=== PATIENT | female | born 1975 | race Caucasian/White ===

== ENCOUNTER → 2019-09-07 | Outpatient (CLI) | payer BC | END | disposition home or self-care (01) | LOC: LAB SHORT 10:58 → PLD 10:58 | DX: L57.0 Actinic keratosis (principal); L11.9 Acantholytic disorder, unspecified | CPT/HCPCS: 88305 ==

== ENCOUNTER → 2022-02-21 | Outpatient (CLI) | payer BC | END | disposition home or self-care (01) | LOC: LAB SHORT 12:58 | DX: R10.9 Unspecified abdominal pain (principal) | CPT/HCPCS: 87086; 87147 ==

== ENCOUNTER 2023-04-24 13:57 | Emergency (ER) | payer BC ==
[~2023-04-24] VITALS: Ht 160 cm; Wt 63.5 kg
[2023-04-24 15:50] LABS: BASOPHILS ABSOLUTE AUTO 0.05 K/mm3 (0.00-0.23); BASOPHILS PERCENT AUTO 1 % (0-2); EOSINOPHILS ABSOLUTE AUTO 0.12 K/mm3 (0.00-0.68); EOSINOPHILS PERCENT AUTO 2 % (0-6); Hemoglobin 13.9 g/dL (11.5-16.0); IMMATURE GRAN ABSOLUTE AUTO 0.03 K/mm3 (0.00-0.10); IMMATURE GRAN PERCENT AUTO 0 % (0-1); LYMPHOCYTES ABSOLUTE AUTO 2.46 K/mm3 (0.84-5.20); LYMPHOCYTES PERCENT AUTO 32 % (21-46); MONOCYTES ABSOLUTE AUTO 0.57 K/mm3 (0.16-1.47); MONOCYTES PERCENT AUTO 8 % (4-13); Mean Corpuscular HGB Conc 33.9 g/dL (31.5-36.5); Mean Corpuscular Volume 95 fL (80-100); Mean Platelet Volume 10.9 fL (9.1-12.4); NEUTROPHILS ABSOLUTE AUTO 4.41 K/mm3 (1.96-9.15); NEUTROPHILS PERCENT AUTO 58 % (41-73); Platelet Count 232 K/mm3 (150-400); RDW Coefficient Variation 12.7 % (11.7-14.2); RDW Standard Deviation 43.8 fL (35.1-46.3); Red Blood Cell Count 4.34 M/mm3 (3.80-5.20); White Blood Cell Count 7.64 K/mm3 (4.00-11.30)
[2023-04-24 16:16] LABS: Albumin, Blood 4.2 g/dL (3.4-5.0); Albumin/Globulin Ratio 1.4 (0.8-1.8); Bilirubin, Total 0.2 mg/dL (0.1-1.0); Bun/Creatinine Ratio 9.1 (12.0-20.0); Calcium, Blood 9.3 mg/dL (8.5-10.1); Creatinine, Blood 0.99 mg/dL (0.40-1.00); Globulin, Blood 3.1 g/dL (2.2-4.0); Potassium, Blood 3.9 mmol/L (3.5-5.5); Total Protein, Blood 7.3 g/dL (6.4-8.2)
[2023-04-24 16:35] LABS: Source, Urine Clean Catch
[2023-04-24 16:41] LABS: Appearance, Urine Hazy (Clear); Bilirubin, Urine Neg (Neg); Blood, Urine 2+ (Neg); Color, Urine Yellow (P-Yellow); Glucose Qualitative, Urine Neg (Neg); Ketones, Urine 1+ (Neg); Leukocyte Esterase, Urine 2+ (Neg); Nitrite, Urine Neg (Neg); Protein, Urine 1+ (Neg); Urobilinogen, Urine NORM (Normal)
[2023-04-24 16:51] LABS: Bacteria Mod /hpf; Squamous Epithelial Cells Mod /hpf (Few); Transitional Epithelial Cells Few /hpf (0-Rare); White Blood Cells, Urine 25-50 /hpf (0-5)
[2023-04-24] MEDS ORDERED: TAMSULOSIN HCL0.4 M1 PO (17:03)
[2023-04-24] MEDS ORDERED: METHYLPHENIDATE18 MG PO (17:04)
[2023-04-24] MEDS ORDERED: RIZATRIPTAN10 M3 PO (17:04)
[2023-04-24] MEDS ORDERED: EMGALITY120 MG/1 M SQ (17:04)
[2023-04-24] MEDS ORDERED: ZOLPIDEM TARTRA10 MG PO (17:04)
[2023-04-24] MEDS ORDERED: PROLIA60 MG/1 ML SQ (17:04)
[2023-04-24] MEDS ORDERED: PROGESTERONE100 M1 PO (17:05)
[2023-04-24] MEDS ORDERED: LOSA50 PO (17:05)
[2023-04-24] MEDS ORDERED: Venlafaxine HCl75 M1 PO (17:05)
[2023-04-24] MEDS ORDERED: ESTRADIOL1 M1 PO (17:05)
[2023-04-24] MEDS ORDERED: TIZANIDINE HCL213 PO (17:06)
[2023-04-24] MEDS ORDERED: CEFP200 PO (18:41)
[2023-04-24 19:00] VITALS: BP 141/89
== END 2023-04-24 19:05 | disposition home or self-care (01) ==
LOC: ER 13:57
PROVIDERS: Physician Assistant
DX: N12 Tubulo-interstitial nephritis, not specified as acute or chronic (principal); Z91.041 Radiographic dye allergy status; Z88.5 Allergy status to narcotic agent; Z88.8 Allergy status to other drugs, medicaments and biological substances
CPT/HCPCS: 74176; 80053; 81001; 83690; 85025; A9270; J0696; J1885